=== PATIENT | male | born 1960 | race Caucasian/White ===

== ENCOUNTER 2016-04-07 14:30 | Inpatient (IN) | payer MEDICARE ==
[~2016-04-07] VITALS: Ht 175.3 cm; Wt 133.4 kg
--- NOTE | ~2016-04-07 | HP ---
PATIENT'S NAME: TREMAYNE GONCALVES V [facility] AGE: 56 Y [address] ROOM: [address] [address] LOCATION: GPCU ADMIT DATE: 04/07/2016 History & Physical DISCHARGE DATE: FAMILY PHYSICIAN: PHYSICIAN, UNKNOWN ATTENDING PHYSICIAN: RITA NEWBERRY DATE OF SERVICE: CHIEF COMPLAINT: Acute blood loss anemia and right groin pain. HISTORY OF PRESENT ILLNESS: This is a 56-year-old male who recently had inferior myocardial infarction status post 3 drug-eluting stents placed to the RCA just last Wednesday at an outside facility. At that time, the echo after the stents showed EF of 50% to 55% and the patient was subsequently sent home. During the cardiac cath, the patient had a right femoral artery access. The patient was discharged from the hospital, his hemoglobin was 8. There was no acute bleeding from the right groin area. However, yesterday, the patient had been complaining of a sudden onset of right groin pain. He has noticed that he was having some nausea and vomiting a few times and when he was vomiting, he was putting pressure on his abdomen and that is when he felt that the right groin was popping out and he feels that the right groin area was bulging out and that is when the pain happened in the right groin. He did not notice any obvious bleeding from the groin area. Because of the pain and bulging of the right groin, the patient went to the outside facility for evaluation. Over there, the patient had hemoglobin checked and was found to be 6. He was also hypotensive according to the medical records. Systolic blood pressure was in the 80s for which he responded well to the IV fluids up to the 120s. INR was 1.3 today. He takes Coumadin at home for his history of paroxysmal atrial fibrillation for which currently he is in sinus. After the drug-eluting stent, the patient was put on aspirin and Plavix. At outside facility, the patient was determined not to have any pseudoaneurysm, but just a right femoral hematoma. Because the patient is on peritoneal dialysis; therefore, the patient was transferred here for peritoneal dialysis given that the outside facility does not perform peritoneal dialysis and the patient was given 2 units of packed red blood cell transfusion for hemoglobin of 6 before the transfer here. The patient denies any chest pain or any shortness of breath. His only complaint is right groin pain. REVIEW OF SYSTEMS: As mentioned in the history of present illness. All other systems are reviewed and negative except for those mentioned in the history of present illness. PATIENT'S NAME: TREMAYNE GONCALVES [facility] AGE: 56 Y [address] ROOM: [place] [address] [facility] ADMIT DATE: 04/07/2016 History & Physical DISCHARGE DATE: FAMILY PHYSICIAN: PHYSICIAN, UNKNOWN ATTENDING PHYSICIAN: RITA NEWBERRY PAST MEDICAL HISTORY: 1. Hypertension. 2. End-stage renal disease, on peritoneal dialysis. 3. Paroxysmal atrial fibrillation. 4. Obstructive sleep apnea, on home CPAP. 5. Prior myocardial infarction in 2005, status post drug-eluting stent x1 at that time. ALLERGIES: LATEX WHICH CAUSES HIVES. HOME MEDICATIONS: 1. Lipitor 80 mg p.o. daily. 2. Klonopin 1 mg p.o. every day. 3. MiraLAX 1 packet daily p.r.n. for constipation. 4. Ambien 5 mg p.o. at bedtime. 5. Tylenol 650 mg p.o. every 4 hours p.r.n. for pain or fever. 6. Coreg 25 mg p.o. b.i.d. 7. Nitroglycerin 0.4 mg sublingual every 5 minutes p.r.n. for chest pain. 8. Lasix 80 mg p.o. b.i.d. 9. CPAP at night. 10. Levothyroxine 50 mcg p.o. daily. 11. Klonopin 0.5 mg p.o. at bedtime once daily. 12. Coumadin 6 mg p.o. 6 days a week. 13. Coumadin 9 mg 1 day in a week. 14. Gabapentin 400 mg p.o. daily. 15. Sensipar 180 mg p.o. at bedtime. 16. Velphoro 500 mg p.o. p.r.n. with snacks. 17. Velphoro 1000 mg p.o. t.i.d. 18. Aspirin 81 mg p.o. daily. 19. Plavix 75 mg p.o. daily. SOCIAL HISTORY: The patient was a former cigarette smoker. He quit about 15 years ago. He used to smoke about 1 pack per day for 15 years. He denies any alcohol or any illegal drug use. PAST SURGICAL HISTORY: 1. Status post drug-eluting stent x1 back in 2005. 2. Status post 3 drug-eluting stents to the RCA just last week. FAMILY HISTORY: Father from myocardial infarction at age 54. Mother from cancer of unknown type at age 72. PATIENT'S NAME: TREMAYNE GONCALVES V [facility] AGE: 56 Y [address] ROOM: [address] [place] [id number] [facility] ADMIT DATE: 04/07/2016 History & Physical DISCHARGE DATE: FAMILY PHYSICIAN: PHYSICIAN, UNKNOWN ATTENDING PHYSICIAN: RITA NEWBERRY PHYSICAL EXAMINATION: VITAL SIGNS: At the time of my dictation, temperature 97.5, blood pressure 134/66, heart rate 73, respirations 24, saturation 100% on room air. Pain is 4/10 in the right groin area on palpation. GENERAL APPEARANCE: Alert and oriented x3, in no acute distress. HEENT: Pupils are equally round and reactive to light. Extraocular muscles intact. Anicteric sclerae. Nasal turbinates are normal bilaterally. Moist oral mucosa. CARDIOVASCULAR: Regular rate and rhythm. Normal S1 and S2. No murmur, no rubs, no gallops. RESPIRATORY: Clear. Chest wall nontender to palpation. ABDOMEN: Obese, soft, nontender, nondistended. Normal bowel sounds. No hepatosplenomegaly. EXTREMITIES: In the right groin area, there is obvious hematoma on the right groin and tender to palpation. No active bleeding from the exterior examination of the skin. No edema in upper or lower extremities. NEUROLOGIC: Grossly nonfocal. SKIN: No ulcer. No cyanosis. MUSCULOSKELETAL: No joint pain. No muscle pain. Range of motion intact. LABORATORY DATA: White blood cell 9.5, hemoglobin 8.1, hematocrit 24.2, MCV 91.7, platelets 189. Glucose 77, BUN 58, creatinine 13.3, sodium 136, potassium 4.9, chloride 94, CO2 of 23, calcium 6.4, total protein 5.9, albumin 2.4, AST 23, ALT 11, alkaline phosphatase 66, total bilirubin 0.3, direct bilirubin less than 0.1, GFR 4, anion gap 23.9, INR 1.3. IMAGING STUDIES: CT angiogram of the abdomen and pelvis on admission here in our facility upon arrival showed right groin hematoma without pseudoaneurysm or retroperitoneal hematoma. Large amount of ascites. Ventral hernia. End-stage kidneys. Peritoneal dialysis catheter in place. ASSESSMENT AND PLAN: 1. Acute on chronic anemia secondary to acute blood loss anemia from the right groin hematoma: This is most likely in the setting of nausea and vomiting that he was having that caused bulging of the right groin causing hematoma. He was also put on aspirin and Plavix and also Coumadin, which also increased the risk of bleeding as well. Currently, hemoglobin is 8.1, I am going to check another hemoglobin later today and repeat another one later on. The goal should be hemoglobin more than 8 given that he is a cardiac patient. We will transfuse if necessary. The patient did become hypotensive at the outside facility and the chip mixer from the outside facility who did the cardiac stents did recommend not to give aspirin or Plavix at least for tonight until his PATIENT'S NAME: TREMAYNE GONCALVES V [facility] AGE: 56 Y [address] ROOM: [address] [address] [facility] ADMIT DATE: 04/07/2016 History & Physical DISCHARGE DATE: FAMILY PHYSICIAN: PHYSICIAN, UNKNOWN ATTENDING PHYSICIAN: RITA NEWBERRY hemoglobin remained stable. INR 1.3; therefore, I do not need to reverse the INR. I will hold aspirin and Plavix for tonight given that it is already late at this time and his hemoglobin barely improved with 2 units of blood. I will hold the Coumadin obviously for now. He is in sinus rhythm. If the hemoglobin remains stable in the morning; therefore, we should definitely resume the aspirin and Plavix to prevent any stent restenosis from the recent stent placed just last Wednesday. The patient denies any chest pain. CT angiogram was already performed of the abdomen and pelvis which did not show any retroperitoneal hematoma or any pseudoaneurysm in the right groin. Vascular Surgery has been consulted. At this moment, there is nothing else to be done given that there is no retroperitoneal hematoma or any pseudoaneurysm. Further plan depends on clinical course. 2. Regarding his recent cardiac stents, 3 stents to the RCA just last Wednesday: As mentioned before, hold aspirin and Plavix for now, and if the hemoglobin remains stable, tomorrow morning we can resume the aspirin and Plavix. Continue all other medications including the Lipitor, Coreg, Lasix. The patient is chest pain-free right now. 3. Regarding his obstructive sleep apnea: Continue home CPAP. 4. Regarding his end-stage renal disease, on peritoneal dialysis: Continue peritoneal dialysis today. Nephrology has been consulted already. 5. Paroxysmal atrial fibrillation: He is in sinus rhythm right now. Hold the Coumadin tonight. INR 1.3 today. INR check tomorrow morning. 6. DVT prophylaxis: He will be on compression devices. Time spent in care on the day of admission 40 minutes including chart review, examining and interviewing the patient, addressing all the questions and concerns the patient had, and going over the plan of care with the patient. RITA NEWBERRY MD CC/radha /[id number] D: [id number] T: [id number] HISTORY & PHYSICAL
--- NOTE | ~2016-04-07 | CON ---
PATIENT'S NAME: TREMAYNE GONCALVES V [facility] AGE: 56 Y [address] ROOM: [place] [address] LOCATION: GPCU ADMIT DATE: 04/07/2016 Consultation DISCHARGE DATE: FAMILY PHYSICIAN: PHYSICIAN, ALYSSA ATTENDING PHYSICIAN: RITA NEWBERRY DATE OF CONSULTATION: 04/08/2016 REFERRING PHYSICIAN: Elaina Leyva MD REASON FOR CONSULT: Right groin hematoma. HISTORY OF PRESENT ILLNESS: This is a 56-year-old male, admitted to [facility] after presenting to outside facility with right groin hematoma. The patient recently underwent a heart catheterization with 3 drug-eluting stents to his RCA. They accessed via the right groin and the patient was stable on discharge home. At home, the patient experienced sudden pain, nausea, and vomiting, and felt a sudden pop to his right groin. He noticed a bulging area at the access site. The patient went to [facility] for further evaluation, was found to have hemoglobin of 6, and was hypotensive with systolic blood pressures in the 80s. The patient was on aspirin, Coumadin, and Plavix at that time. CTA of the abdomen and pelvis obtained and revealed no evidence of retroperitoneal bleed or discrete hematoma. No major vascular occlusion. No pseudoaneurysms. The patient denies any chest pain or shortness of breath. Denies any nausea, vomiting, or diarrhea. Denies abdominal pain. Denies any claudication. Denies headache or dizziness. The patient does have continued tenderness to his right groin. Denies any lower extremity numbness other than peripheral neuropathy. PAST MEDICAL HISTORY: 1. End-stage renal disease, on peritoneal dialysis. 2. Essential hypertension. 3. Diabetes mellitus type 2. 4. Paroxysmal atrial fibrillation, on Coumadin. 5. Coronary artery disease, status post stents. 6. Obstructive sleep apnea. 7. Hypothyroidism. 8. Dyslipidemia. 9. Anemia of chronic disease. 10. Diabetic neuropathy. PAST SURGICAL HISTORY: 1. PTCA to RCA. 2. AV fistula. 3. PD dialysis catheter. 4. Right total hip arthroplasty. PATIENT'S NAME: TREMAYNE GONCALVES V [facility] AGE: 56 Y [address] ROOM: [place] [address] LOCATION: GPCU ADMIT DATE: 04/07/2016 Consultation DISCHARGE DATE: FAMILY PHYSICIAN: PHYSICIAN, NO ATTENDING PHYSICIAN: RITA NEWBERRY FAMILY HISTORY: Father with TX and strokes. Mother with cancer. Sister with cancer. Brother with TX as well. SOCIAL HISTORY: The patient reports that he is a former smoker with a 30-year smoking history. He does currently chew tobacco off and on, but stop smoking in 2005. He denies any alcohol or illicit drug use. CURRENT MEDICATIONS: See medication reconciliation. ALLERGIES: SULFA AND LATEX. REVIEW OF SYSTEMS: A 10-point review of systems was completed, positives addressed in the history of presenting illness. PHYSICAL EXAMINATION: VITAL SIGNS: Temperature 97.6, heart rate 67, respiratory rate 18, blood pressure 115/57, and oxygen saturation 98%. GENERAL: The patient is in no acute distress. Resting in his bed. He is alert and oriented x3. SKIN: Warm, pink, and dry. No rashes or ulcerations. He does have ecchymosis to the right groin. HEENT: Head: Normocephalic and atraumatic. Ears without drainage. Eyes: Sclerae white. Conjunctivae pink. Extraocular movements intact. PERRLA. Nose without drainage. Throat: Oral mucosa pink and moist. No exudate or erythema. NECK: Without adenopathy. No evidence of JVD. No carotid bruit. Trachea midline. RESPIRATORY: Clear to auscultation bilaterally. Even and nonlabored. CARDIOVASCULAR: Regular rate and rhythm. No murmur or extra sounds. S1 and S2. GASTROINTESTINAL: Bowel sounds active x4. Soft. Obese. No organomegaly. Peritoneal dialysis catheter present. EXTREMITIES: Right groin hematoma with tenderness on palpation. No cyanosis. 1+ edema to right lower extremity. Bilateral peripheral pulses are 2+. Active range of motion throughout. Capillary refill less than 3 seconds. NEUROLOGIC: No focal deficits. Strength equal bilaterally. Decreased sensation to bilateral lower extremities from peripheral neuropathy. DIAGNOSTICS: PATIENT'S NAME: TREMAYNE GONCALVES [facility] AGE: 56 Y [address] ROOM: [address] [place], [place] [address] LOCATION: GPCU ADMIT DATE: 04/07/2016 Consultation DISCHARGE DATE: FAMILY PHYSICIAN: PHYSICIAN, NO ATTENDING PHYSICIAN: RITA NEWBERRY Chemistry: Sodium 136, potassium 4.9, chloride 95, CO2 of 24, BUN 56, creatinine 3.4, and glucose 89. Hematology: White blood cell count 8.8, hemoglobin 8.4, hematocrit 24.2, and platelets 192. IMPRESSION AND PLAN: Right groin hematoma post heart cath. Hematoma appears stable and imaging is negative for pseudoaneurysm or retroperitoneal bleed. There is no intervention needed from Vascular Surgery at this point in time. The Hospitalist Team is to continue to monitor the patient and guide the plan of care. The patient may follow up with Vascular Surgery as needed or if further complications arise. Thank you for your consultation on this patient and for allowing us to participate in his care. DAJA THRASHER APRN FOR JEREMI PETE MD TO/jackl /[id number] d: 04/08/16 1724 t: 04/19/16 1302, CONSULTATION REPORT
--- NOTE | ~2016-04-07 | CON ---
PATIENT'S NAME: TREMAYNE GONCALVES [facility] AGE: 56 Y [address] ROOM: [place] [address] [facility]: [facility] ADMIT DATE: 04/07/2016 Consultation DISCHARGE DATE: FAMILY PHYSICIAN: PHYSICIAN, ALYSSA ATTENDING PHYSICIAN: RITA NEWBERRY DATE OF CONSULTATION: 04/08/2016 REFERRING PHYSICIAN: Elaina Leyva MD REASON FOR CARDIOLOGY CONSULT: Coronary artery disease with recent inferior ST elevated myocardial infarction as well as a right groin hematoma. HISTORY OF PRESENT ILLNESS: This is a 56-year-old male who suffered an inferior ST elevated myocardial infarction and underwent coronary artery stenting x3 to his right coronary artery last week. He was sent home post procedure after a right femoral access was used for the procedure. He developed nausea and vomiting at home and then suffered some intense sharp right groin pain. Due to the pain as well as some noted swelling to his right groin, he presented to his local emergency department where he was found to be acutely anemic with a hemoglobin of 6 as well as hypotensive. He was resuscitated with IV fluids and packed red blood cells. He was subsequently then transferred to [facility] for further evaluation. Of note, he was previously on Coumadin as well as his aspirin and Plavix due to history of paroxysmal atrial fibrillation. He was given further blood transfusions at [facility], but ultimately was transferred to [facility] for a higher level of care due to the patient's having chronic renal disease and to undergo peritoneal dialysis, which [facility] does not perform. At the time of this consult, he does not elicit any complaints of chest discomfort. He does have complaints of right groin tenderness. PAST MEDICAL HISTORY: 1. Coronary artery disease with a recent inferior ST elevated myocardial infarction with 3 stents placed to his RCA. He also has note of a previous myocardial infarction in 2006 with a stenting to a coronary artery at that time. 2. Hypertension. 3. End-stage renal disease, on peritoneal dialysis. 4. Paroxysmal atrial fibrillation. 5. Obstructive sleep apnea with home CPAP use. 6. Hypertension. 7. Dyslipidemia. 8. Hypothyroidism. 9. Diabetic neuropathy. 10. History of a right total hip arthroplasty. PATIENT'S NAME: TREMAYNE GONCALVES [facility] AGE: 56 Y [address] ROOM: [address] [place], [place] [address] LOC[facility]: [facility] ADMIT DATE: 04/07/2016 Consultation DISCHARGE DATE: FAMILY PHYSICIAN: PHYSICIAN, ALYSSA ATTENDING PHYSICIAN: RITA NEWBERRY FAMILY HISTORY: The patient's father had a history of myocardial infarction as well as several strokes. He at the age of 54. His mother had a history of cancer, he is unsure of the type, and she at the age of 72. He has a sister who due to cancer and a brother who is alive, but does have a history of myocardial infarction. SOCIAL HISTORY: The patient is a former cigarette smoker. He smoked for a total of 30 years and during that time, smoked 1 pack per day. He quit smoking in 2005. He does continue to chew tobacco regularly at this time. He denies alcohol or illicit drug use. CURRENT MEDICATIONS: 1. Ambien 5 mg p.o. daily in the evening. 2. Coreg 25 mg p.o. twice daily. 3. Klonopin 1 mg p.o. daily at 1500 hours. 4. Klonopin 0.5 mg p.o. daily at h.s. 5. Lasix 80 mg p.o. twice daily. 6. Levothyroxine 50 mcg p.o. daily in the morning. 7. Lipitor 80 mg p.o. daily in the evening. 8. Neurontin 400 mg p.o. daily. 9. Velphoro p.o. 3 times daily. 10. Plavix 75 mg p.o. daily. 11. Sensipar 180 mg p.o. daily in the evening. MEDICATION ALLERGIES: No known medication allergies. Does develop hives with latex use. REVIEW OF SYSTEMS: 12-point review of systems evaluated and negative except for those listed in the HPI. PHYSICAL EXAMINATION: VITAL SIGNS: Temperature 97.7, pulse 82, respirations 16, blood pressure 123/70, and O2 saturation 96% on room air. The patient weighs 132.8 kg. SKIN: [place], warm, and dry. EYES: Sclerae clear. No xanthelasmas. ENT: Oral mucosa is pink and moist. No jugular venous distention or carotid bruits. CHEST: Respirations are even and unlabored. LUNGS: Clear to auscultation. HEART: Regular rate and rhythm. Normal S1, S2. No murmurs, rubs, or gallops. ABDOMEN: Soft and nontender. PATIENT'S NAME: TREMAYNE GONCALVES [facility] AGE: 56 Y [address] ROOM: [address] [place], [place] [address] LOC[facility]: [facility] ADMIT DATE: 04/07/2016 Consultation DISCHARGE DATE: FAMILY PHYSICIAN: PHYSICIAN, NO ATTENDING PHYSICIAN: RITA NEWBERRY MUSCULOSKELETAL: Equal muscle strength to upper and lower extremities bilaterally against resistance. He does have complaints of very tender right groin area, but he has no noted bruits. EXTREMITIES: Peripheral pulses palpable. No clubbing, cyanosis, or edema. PSYCH: Alert and oriented. Mood and affect are appropriate. IMPRESSION AND PLAN: Per Dr. Leyva, 1. Coronary artery disease with a recent inferior ST elevated myocardial infarction. He has previously had 3 stents placed to his right coronary artery. 2. Right groin hematoma after a femoral puncture for his heart catheterization procedure. 3. Acute blood loss anemia. He has received packed red blood cells and his hemoglobin is currently 8.4. 4. End-stage renal disease, currently on peritoneal dialysis. 5. Paroxysmal atrial fibrillation, currently in a sinus rhythm. Overall if possible, we would like the patient to continue on his antiplatelets due to his most acute setting of coronary stenting with drug- eluting stents but do understand that those may need to be stopped for continual bleeding complications. We will obtain his previous cardiac records from [facility] and fully evaluate them. We will continue to monitor, evaluate, and treat as appropriate. Thank you for this consult. Thank you for allowing [facility] to interact in the care of this patient. ASHLY MODI APRN FOR ISAAC-MD RAYSHAWN BUSBY/radha /[id number] d: 04/09/16 0030 t: 04/15/16 0922, CONSULTATION REPORT
--- NOTE | ~2016-04-07 | DS ---
PATIENT'S NAME: TREMAYNE GONCALVES V [facility] AGE: 56 Y [address] ROOM: [address] [place], [place] [address] LOCATION: GPCU ADMIT DATE: 04/07/2016 Discharge Summary DISCHARGE DATE: 04/11/2016 FAMILY PHYSICIAN: PHYSICIAN, ALYSSA ATTENDING PHYSICIAN: Abel Mccarthy ATTENDING PHYSICIAN: Junior De La O M.D. PRIMARY CARE PHYSICIAN: Erika Mancilla APRN, in [facility]. FINAL DIAGNOSES: 1. Right groin hematoma, resolved. 2. Acute blood loss anemia, resolved. 3. Recent ST-segment elevation myocardial infarction, status post stent. 4. Coronary artery disease, status post stent. 5. Dyslipidemia. 6. End-stage renal disease, on peritoneal dialysis. 7. Paroxysmal atrial fibrillation. 8. Long-term anticoagulation. 9. Ascites secondary to peritoneal dialysis. 10. Right lung nodule, under surveillance. CONSULTATIONS: 1. Cardiology, Dr. Leyva. 2. Nephrology, Dr. Resendez. PROCEDURES: None. REASON FOR ADMISSION: This is a 56-year-old male who recently had STEMI and underwent stent to his RCA on April 01, 2016, at [facility]. The patient was then placed on Plavix and Coumadin for his paroxysmal atrial fibrillation and discharged. The patient presented to an outlying facility with right-sided groin pain and edema. It was noted that his blood pressures were in the 80s/60s. He was also found to be in hypovolemic shock at that point of time. The patient was then transferred to [facility] for higher level of care. Please see Dr. Mccarthy's admission H and P for further details. DIAGNOSTIC STUDIES: Serial CBCs were done. White count was essentially normal. The patient had evaluation with serial H and H. Hemoglobin on admission was 8.1, at the time of discharge was stable at 8.3. The patient received 1 unit of PRBC during this admission. He also received 1 unit of PRBC at the referral hospital. Platelet count was within normal range. BMP showed essentially normal electrolytes. The patient has a history of peritoneal dialysis and end-stage renal disease. He underwent peritoneal dialysis at [facility], under Nephrology care. BUN 58 on admission and 40 at discharge, creatinine 13.3 on admission and 13.2 at PATIENT'S NAME: TREMAYNE GONCALVES V [facility] AGE: 56 Y [address] ROOM: [address] [place], [place] [address] LOCATION: GPCU ADMIT DATE: 04/07/2016 Discharge Summary DISCHARGE DATE: 04/11/2016 FAMILY PHYSICIAN: PHYSICIAN, NO ATTENDING PHYSICIAN: Abel Mccarthy discharge. Potassium level was within normal range. The patient is on Coumadin. His INR was 1.3 on admission. The patient's Coumadin was stopped. INR at the time of discharge was 1.1 and Coumadin was restarted. CT abdomen and pelvis with and without contrast was done and that showed mild pleural thickening at both chest bases, mild pleural effusion. A large amount of ascites secondary to PD likely was noted. Midline ventral hernia containing fluid in bowel but not incarcerated was detected. Gallstone suspected. Biliary tree nondilated. Diffuse edema around the right upper thigh and hip consistent with interstitial bleeding after endovascular procedures noted. No discrete significant sized hematoma was noted. No evidence of retroperitoneal bleed was noted. Very extensive calcification of the aorta and great vessels in the abdomen and pelvis was detected. Peritoneal fluid culture showed no growth. Gram-stain showed no organisms and few white blood cells. Moderate amount of amorphous material was present. HOSPITAL COURSE: The patient was admitted for evaluation and management of hypovolemic shock. This is a 56-year-old male who recently had a STEMI and received a stent to his RCA. The patient was then subsequently placed on aspirin and Plavix. He was also started on his home Coumadin dose for paroxysmal atrial fibrillation. The procedure was done at [facility]. The patient was then transferred to home. The patient presented about 4 days later with right groin hematoma and right groin pain. He was found to be in hypovolemic shock with systolic in the 80s and then transferred to [facility]. Please see Dr. Mccarthy's admission H and P for further details. At [facility], frequent H and H's were done. The patient received 1 unit of PRBC transfusion at the referral hospital. He then subsequently had to be transfused another unit prior to transfer. Hemoglobin at the time of discharge was stable. There was concern for a vessel injury. A CTA abdomen and pelvis was done, Vascular Surgery was consulted. There was no rupture of any vessel. This was likely a hematoma status post cath. The patient did have bruising in that area. He was placed on pain medication, and his pain was resolving at the time of discharge, hematoma resolving at the time of discharge. Initially, his Plavix and Coumadin were started. Cardiology was consulted and no further recommendations were received. We reviewed his history during this admission. Cardiology recommended starting Plavix at the earliest. The next day, when his hemoglobin was stable, Plavix was restarted. The patient's hemoglobin did not drop further. His Coumadin was started. Prior to discharge, he received another unit of PRBC, and his hemoglobin was stable at the time of discharge. We had also discussed with Cardiology about the use of Coumadin given his history of paroxysmal atrial fibrillation. Cardiology had recommended to start the Coumadin slowly and get him therapeutic subsequently. Before discharge, the patient's Coumadin was restarted. Given his bleeding history, bridging was not done during this PATIENT'S NAME: TREMAYNE GONCALVES V [facility] AGE: 56 Y [address] ROOM: [address] [address] LOCATION: GPCU ADMIT DATE: 04/07/2016 Discharge Summary DISCHARGE DATE: 04/11/2016 FAMILY PHYSICIAN: PHYSICIAN, NO ATTENDING PHYSICIAN: Abel Mccarthy admission. The patient has end-stage renal disease and is on peritoneal dialysis. Nephrology was consulted. The patient was followed by Dr. Resendez. He underwent peritoneal dialysis per Renal recommendations. Prior to discharge, the patient continued to do well. He was ambulating in the hallway. His pain was very well controlled. He was not lightheaded. Hemoglobin was stable. The patient then continued to do well, and was discharged and asked to follow up with his primary care physician. DISCHARGE INSTRUCTIONS: The patient discharged in a cardiac diet with activity as tolerated, use walker for assistance. Follow up with Cardiology, Dr. Stevens/Dr. Garcia as scheduled. Follow up with PCP, Erika Mancilla in 2 days on 04/13/2016. PCP to check a CBC, BMP, PT, and INR. PCP to manage Coumadin based on PT and INR levels. Follow up Cardiology and Nephrology as scheduled. PD per Renal recs. Recommended CPAP at bedtime. 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 PCP to repeat chest x-ray or a chest CT for monitoring right lung nodule in 1 to 2 months' time. DISCHARGE MEDICATIONS: 1. Lipitor 80 mg p.o. at bedtime. 2. Coreg 25 mg p.o. b.i.d., hold for systolic blood pressure less than 110 and heart rate less than 60. 3. Sensipar 180 mg p.o. at bedtime. 4. Klonopin 1 mg p.o. daily. 5. Klonopin 0.5 mg p.o. at bedtime. 6. Plavix 75 mg p.o. daily. 7. Aspirin 81 mg p.o. daily. 8. Lasix 80 mg p.o. b.i.d. 9. Neurontin 400 mg p.o. daily. 10. Levothyroxine 50 mcg p.o. daily. 11. Ambien 5 mg p.o. at bedtime. 12. [place] 5/325 mg 1 to 2 tablets p.o. q.4 hours p.r.n. pain. 13. MiraLAX 17 g p.o. daily p.r.n. constipation. 14. Tylenol 650 mg p.o. q.4 hours p.r.n. pain/fever. 15. Nitrostat 0.4 mg sublingual as needed p.r.n. chest pain. 16. CPAP per home settings at bedtime. 17. Coumadin 6 mg p.o. on Wednesday, Wednesday, , Wednesday, and Wednesday. PCP to manage based on PT/INR levels. 18. Coumadin 9 mg p.o. on Wednesday. PCP to manage based on PT/INR levels. 19. Velphoro 500 mg p.o. as needed p.r.n. 20. Velphoro 1000 mg p.o. 3 times daily. PATIENT'S NAME: TREMAYNE GONCALVES V [facility] AGE: 56 Y [address] ROOM: [address] [place], [place] [address] LOCATION: GPCU ADMIT DATE: 04/07/2016 Discharge Summary DISCHARGE DATE: 04/11/2016 FAMILY PHYSICIAN: PHYSICIAN, NO ATTENDING PHYSICIAN: Abel Mccarthy This patient was managed by Hospitalist, Cardiology, Vascular Surgery, and Nephrology teams during this admission. JUNIOR DE LA O MD MT/radha /[id number] CC: Erika Mancilla APRN d: 04/12/16614 t: 04/12/162011, DISCHARGE SUMMARY
--- NOTE | ~2016-04-07 | CON ---
PATIENT'S NAME: TRMEAYNE GONCALVES V [facility] AGE: 56 Y [address] ROOM: [place] [address] LOCATION: GPCU ADMIT DATE: 04/07/2016 Consultation DISCHARGE DATE: FAMILY PHYSICIAN: PHYSICIANALYSSA ATTENDING PHYSICIAN: RITA NEWBERRY DATE OF CONSULTATION: 04/07/2016 REFERRING PHYSICIAN: Elaina Leyva MD This is a [facility] Nephrology Consultation. REASON FOR CONSULTATION: End-stage renal disease, on peritoneal dialysis. HISTORY OF PRESENT ILLNESS: This is a 56-year-old male patient, who is well known to Dr. Leblanc, who presented to the [facility] with right-sided groin pain and edema status post left heart catheterization with PCI and 3 stents at a nearby hospital. The patient was noted to be in hypovolemic shock with blood pressures in the 80s. The patient was transferred to [facility] where he was thoroughly evaluated. The patient was found to have a hematoma of the right groin at that time. The patient is on aspirin and Plavix. The patient's blood pressures were resuscitated with IV fluids and again the patient received 2 units of blood. He does have a past medical history of end-stage renal disease and is on peritoneal dialysis daily. The patient has been on hemodialysis in the past for approximately a year and then he did switch over to peritoneal dialysis without complication. He is currently on CCPD. His ultrafiltration is usually between 1200 and 1600 mL. Therefore, due to history of his end-stage renal disease requiring peritoneal dialysis, Dr. Leblanc and Nephrology has been asked to consult on the patient. PAST MEDICAL HISTORY: As listed above including; 1. End-stage renal disease from diabetes and hypertension. 2. Diabetic nephropathy. 3. Renovascular hypertension. 4. Obesity. 5. Anemia of chronic kidney disease. 6. Chronic atrial fibrillation. 7. Obstructive sleep apnea. 8. Hyperphosphatemia. PAST SURGICAL HISTORY: 1. Peritoneal dialysis catheter placement. 2. AV fistula placement. 3. Cardiac catheterization and stent placement. PATIENT'S NAME: TREMAYNE GONCALVES V [facility] AGE: 56 Y [address] ROOM: [place] [address] LOCATION: GPCU ADMIT DATE: 04/07/2016 Consultation DISCHARGE DATE: FAMILY PHYSICIAN: PHYSICIAN, NO ATTENDING PHYSICIAN: RITA NEWBERRY 4. PCI with [address] Garcia on 04/01/2016. 5. Thoracentesis. SOCIAL HISTORY: The patient does live alone at home and is single. He is negative for alcohol, tobacco, or illicit drug use. FAMILY HISTORY: Reviewed and is noncontributory. There is no history of renal disease or dialysis. ALLERGIES: LATEX. MEDICATIONS: Current home medications include; 1. Tylenol 325 mg 2 tablets p.o. q.4 hours. 2. Aspirin 81 mg daily. 3. Atorvastatin 80 mg daily at bedtime. 4. Carvedilol 25 mg p.o. b.i.d. 5. Sensipar 90 mg 2 tablets daily at bedtime. 6. Clonazepam 1 mg, 1/2 tablet every night at bedtime and 1 mg p.o. daily. 7. Plavix 75 mg daily. 8. Lasix 80 mg twice a day. 9. Gabapentin 400 mg daily. 10. Levothyroxine 50 mcg daily. 11. Nitroglycerin 0.4 mg sublingual p.r.n. for chest pain. 12. MiraLax 17 grams p.o. daily. 13. Sucroferric oxyhydroxide 1000 mg p.o. t.i.d. with meals and 500 mg p.o. p.r.n. with snacks. 14. Warfarin 6 mg p.o. 6 days of the week and 9 mg p.o. one day of the week. 15. Ambien 5 mg daily at bedtime. REVIEW OF SYSTEMS: GENERAL: Complains of some fatigue. Denies any fever, chills, or night sweats. EYES: No double vision or blurred vision. NOSE: No epistaxis or rhinorrhea. MOUTH: No gingival bleeding. THROAT: No sore throat, hoarseness, or cough. RESPIRATORY: Denies wheezing or hemoptysis. CARDIOVASCULAR: See HPI. No chest pain currently. GASTROINTESTINAL: Denies nausea, vomiting, or diarrhea. Denies hematemesis or hematochezia. GENITOURINARY: He does continue to make urine despite hemodialysis. PATIENT'S NAME: TREMAYNE GONCALVES V [facility] AGE: 56 Y [address] ROOM: [address] [place] [id number] [facility] ADMIT DATE: 04/07/2016 Consultation DISCHARGE DATE: FAMILY PHYSICIAN: PHYSICIAN, NO ATTENDING PHYSICIAN: RITA NEWBERRY MUSCULOSKELETAL: He does have tenderness in his right groin. NEUROLOGIC: Denies numbness or tingling in the upper or lower extremities. He does have a history of diabetic neuropathy and is on gabapentin. HEMATOLOGIC: Denies any history of bruising or bleeding other than what is listed in the HPI. PSYCHIATRIC: Denies depression or anxiety. LABORATORY DATA: Hemoglobin 8.4, hematocrit 24.2, WBCs 8.8, and platelets 192. Glucose 89, BUN is 56, creatinine 13.4, sodium 136, potassium 4.9, chloride 95, CO2 is 24, calcium 6.6, albumin 2.4, AST 23, ALT is 11, alkaline phosphatase 66, phos is 9.0, magnesium is 2.1, and INR is 1.3. CT of the abdomen and pelvis with and without contrast shows; 1. Right groin hematoma without pseudoaneurysm or retroperitoneal bleeding. 2. Large amount of ascites. 3. Ventral hernia. 4. End-stage kidneys. 5. Peritoneal dialysis catheter. PHYSICAL EXAMINATION: VITAL SIGNS: Blood pressure is 123/70, pulse is 82, respirations 16, temperature is 97.7, and saturations 96% on room air. GENERAL: On exam, this is an alert and oriented x3, male patient, who is in no acute distress. HEENT: Head: Normocephalic and atraumatic. Eyes: Pupils are equal, round, and reactive to light and accommodation. EOMs are intact. Nose is midline. Mouth: No gingival bleeding. Mucosa is pink and moist. Throat is without lymphadenopathy, carotid bruits, or JVD. LUNGS: Lung sounds are clear to auscultation anteriorly and posteriorly. Breaths are nonlabored. CARDIOVASCULAR: Regular rate and rhythm with normal S1 and S2. There are no murmurs, rubs, or thrills. ABDOMEN: Soft, nontender, and nondistended. Bowel sounds are positive. EXTREMITIES: Show tenderness noted in the right groin area with obvious hematoma in the right groin that is tender to palpation to the mid thigh. No active bleeding from exterior examination. There are no edema in bilateral lower extremities. NEUROLOGIC: Cranial nerves II through XII are grossly intact. ASSESSMENT AND PLAN: 1. End-stage renal disease, on peritoneal dialysis. We will obtain the patient's outpatient clinical record and provide peritoneal dialysis accordingly. He does use 1.5% dextrose solution 4 cycles over 9 hours. We will send the PD fluid for cell count. PATIENT'S NAME: TREMAYNE GONCALVES V [facility] AGE: 56 Y [address] ROOM: [place] [address] [facility] ADMIT DATE: 04/07/2016 Consultation DISCHARGE DATE: FAMILY PHYSICIAN: PHYSICIAN, ALYSSA ATTENDING PHYSICIAN: RITA NEWBERRY 2. Right groin hematoma status post left heart catheterization with percutaneous coronary intervention. Bleeding is controlled at this time. Further recommendations per hospitalist. 3. Diabetic neuropathy. The patient is to continue his Neurontin at this time. 4. Hyperphosphatemia secondary to chronic kidney disease. The patient is to continue his Velphoro with food. 5. Hyperlipidemia. Continue statin. 6. Hypothyroidism. Continue levothyroxine. This patient has been seen and assessed by Dr. Leblanc. His care is being conducted in consultation with Dr. Leblanc as well as me. We will plan further recommendations as they are forthcoming. DENISE STEVENSON DNP, WINDOWS APPLICATION DEVELOPER FOR [employer] VIELKA LEBLANC MD ENS/modl /[id number] d: 04/08/162201 t: 04/27/16 0934, CONSULTATION REPORT
--- NOTE | ~2016-04-07 | HP ---
PATIENT'S NAME: [facility] TREMAYNE V [facility] AGE: 56 Y [address] ROOM: [place] [address] LOCATION: GPCU ADMIT DATE: 04/07/2016 History & Physical DISCHARGE DATE: FAMILY PHYSICIAN: PHYSICIAN, UNKNOWN ATTENDING PHYSICIAN: RITA NEWBERRY DATE OF SERVICE: PRIMARY CARE PHYSICIAN: Dr. Mancilla out of [place]. CHIEF COMPLAINT: Right groin pain. HISTORY OF PRESENT ILLNESS: The patient is a 56-year-old male, who initially presented to [facility] with right-sided groin pain and edema. It was noted that he had blood pressures 80s over 60s. He was found to be in hypovolemic shock. They did fluid resuscitate him and start 2 units of blood. He was then transferred to [facility] where he was further evaluated. The patient had undergone stenting of the RCA on April 01, 2016, due to STEMI at that time. The patient was started on aspirin and Plavix and was released shortly after the procedure in stable condition. Upon return today, he was found to have a large hematoma over the calf incision site. The patient's pressure had resuscitated with IV fluids, and again, he did receive 2 units of blood. The patient has history of end-stage renal disease and is on daily peritoneal dialysis, which they can not do at [facility], and thus, the patient was transferred up here. Upon interview today, the patient is stable. His pain is well controlled. His pressures were much improved, and the patient will be further evaluated for his acute anemia while hospitalized. PAST MEDICAL HISTORY: Illnesses include: 1. End-stage renal disease secondary to hypertension and diabetes, on chronic peritoneal dialysis. 2. Paroxysmal atrial fibrillation, on long-term anticoagulation. 3. Coronary artery disease, status post 3 stents to the RCA. 4. Obstructive sleep apnea, on CPAP. 5. Essential hypertension. 6. Hypothyroidism. 7. Dyslipidemia. 8. Status post right total hip arthroplasty. 9. Anemia of chronic disease. 10. Diabetic neuropathy. SOCIAL HISTORY: Negative for alcohol, tobacco, or illicit drug use. The patient is single and PATIENT'S NAME: [facility] TREMAYNE [facility] AGE: 56 Y [address] ROOM: [place] [address] LOCATION: GPCU ADMIT DATE: 04/07/2016 History & Physical DISCHARGE DATE: FAMILY PHYSICIAN: PHYSICIAN, UNKNOWN ATTENDING PHYSICIAN: RITA NEWBERRY. FAMILY HISTORY: Reviewed and found to be noncontributory to his current symptoms and diagnoses. CURRENT MEDICATIONS: 1. Tylenol 325 mg q.4 hours p.r.n. 2. Aspirin 81 mg daily. 3. Lipitor 80 mg daily. 4. Coreg 25 mg daily. 5. Clonazepam 1.5 mg daily. 6. Lasix 80 mg twice a day. 7. Gabapentin 200 mg at bedtime. 8. Levothyroxine 50 mcg daily. 9. Nitrostat 0.4 mg sublingual every 5 minutes for chest pain. 10. Nystatin topical twice daily for an intertrigo rash. 11. MiraLAX 17 g daily p.r.n. 12. Renvela 1600 mg 3 times a day. 13. Sensipar 180 mg at bedtime. 14. Velphoro 500 mg a 1000 mg 3 times daily before meals. 15. Ambien 5 mg at bedtime. 16. Coumadin 9 mg on Wednesday. 17. Coumadin 6 mg every day except Wednesday. 18. Plavix 75 mg daily. ALLERGIES: TO LATEX AND SULFA. REVIEW OF SYSTEMS: A 13-point review of systems was obtained and negative other than the pertinent positives as mentioned above. PHYSICAL EXAMINATION: VITAL SIGNS: Height is 5 feet 9 inches, weight is 132.8 kilos, temp is 97.7, blood pressure is 152/72, pulse 104, heart rate is 68, he is 100% on room air. GENERAL: The patient is alert, oriented, in no acute distress. HEENT: Head: Normocephalic and atraumatic. Eyes: PERRLA, EOMI. Ears: TMs are intact, nonerythematous, canals are clear. Nose is patent. Mucosa is pink and moist. Throat: Posterior pharynx is nonerythematous. No tonsillar hypertrophy or exudates. NECK: Supple. No adenopathy or thyromegaly. LUNGS: Clear to auscultation and percussion bilaterally. Breath sounds are even and regular throughout. HEART: Regular rate and rhythm without murmur. No carotid bruits or JVD. PATIENT'S NAME: TREMAYNE GONCALVES V [facility] AGE: 56 Y [address] ROOM: [address] [place] [id number] [facility] ADMIT DATE: 04/07/2016 History & Physical DISCHARGE DATE: FAMILY PHYSICIAN: PHYSICIAN, UNKNOWN ATTENDING PHYSICIAN: RITA NEWBERRY ABDOMEN: Soft, nondistended. Positive bowel sounds auscultated. No masses or organomegaly palpated. EXTREMITIES: The patient does have no cyanosis or calf tenderness. He does have 1 to 2+ edema in his right lower extremity. Trace of edema noted in his left lower extremity. SKIN: The patient does have significant ecchymosis to his right groin with obvious mass present. Palpation elicits definite tenderness. The area is outlined. SKIN: No other rashes or acute skin lesions noted. NEUROLOGIC: The patient has diminished sensation in bilateral lower extremities. Otherwise, sensation is intact. No other focal or sensory deficits noted. MUSCULOSKELETAL: The patient does not have any significant crepitus in the knees, elbows, or shoulders and has range of motion as appropriate for age and condition. DIAGNOSTICS: White blood cell count is 9.5, hemoglobin is 8.1, hematocrit 24.2, platelets 189. Rest of the laboratory studies are pending at the time of dictation. IMPRESSION: 1. Acute on chronic anemia. 2. Hypovolemic shock, now resolved. 3. Essential hypertension. 4. Hypothyroidism. 5. End-stage renal disease, on peritoneal dialysis. 6. Dyslipidemia. 7. Coronary artery disease, status post stenting of the RCA. 8. Diastolic congestive heart failure. 9. Anxiety and insomnia. 10. Diabetic neuropathy. PLAN: The patient will undergo a CTA imaging for further evaluation of his acute anemia. Dr. Rogel and Dr. Willis will consult for Vascular and Nephrology respectively. We will continue with his dialysis. We will continue with CPAP use at h.s. Keep the patient n.p.o. until further evaluation. We do appreciate participating in this patient's care, and thank you very much for the ability to serve him while hospitalized at [facility]. CELINE HILL FOR RITA NEWBERRY MD PATIENT'S NAME: TREMAYNE GONCALVES V [facility] AGE: 56 Y [address] ROOM: [address] [address] [facility] ADMIT DATE: 04/07/2016 History & Physical DISCHARGE DATE: FAMILY PHYSICIAN: PHYSICIAN, MIRIAM ATTENDING PHYSICIAN: RITA NEWBERRY/radha /[id number] D: 62 HISTORY & PHYSICAL
[~2016-04-07 14:30] MED LIST: AMBIEN5 MG PO; CLINDAMYCIN150 MG PO; CLONAZEPAM0.5 MG PO; COLACE100 MG PO; CORDARONE,PACE200 MG PO; COREG12.5 M1 PO; COREG12.5 MG PO; COREG25 MG PO; COUMADIN3 MG PO; COUMADIN6 MG PO; CPAP INH; DILAUDID 2MG(HYD2 MG PO; EPOGEN SUB-Q; EPOGEN20000 UNIT SUB-Q; FLORASTOR250 MG PO; FOSRENOL500 MG PO; GENTAMICIN SULF30 GM TOP; GENTAMICIN15 GM TOP; HYDROCERIN)(MI236 ML TOP; KEFLEX250 MG; KLONOPIN1 MG PO; LASIX80 MG PO; LEVOTHROID (S100 MCG PO; LEVOTHROID (SY50 MCG PO; LIPITOR80 MG PO; MIRALAX17 GM PO; NEURONTIN400 MG PO; NITROSTAT0.4 MG SL; NORCO 5-325 TA1 EACH PO; NORVASC5 MG PO; OXYCONTIN EXTEN10 MG PO; PHOSLO667 MG PO; RENVELA800 MG PO; ROCALTROL0.25 MCG PO; SENOKOT8.6 MG PO; SYMBICORT 16010.2 GM INH; TYLENOL325 MG PO; VALIUM5 MG PO; VELPHORO500 MG PO
[2016-04-07 16:49] LABS: HEMATOCRIT 24.2 % (37.0-53.0); HEMOGLOBIN 8.1 g/dL (12.0-17.0); MCH 30.7 pg (27.0-34.0); MCHC 33.5 gm/dL (32.0-36.5); MPV 9.2 fl (9.4-12.4); PLATELET COUNT 189 K/uL (150-450); RBC 2.64 M/uL (4.00-6.00); RDW-CV 14.2 % (11.9-14.6); WBC 9.5 K/uL (4.0-11.0)
[2016-04-07 16:51] LABS: MCV 91.7 fl (83.0-98.0)
[2016-04-07 17:07] LABS: ALBUMIN 2.4 gm/dL (3.5-5.0); ALK PHOS 66 IU/L (33-138); ALT 11 IU/L (12-78); ANION GAP 23.9 (10.0-19.0); AST 23 IU/L (10-40); BLOOD UREA NITROGEN 58 mg/dL (6-24); CALCIUM 6.4 mg/dL (8.5-10.5); CHLORIDE 94 mMol/L (96-110); CO2 23 mMol/L (22-32); CREATININE 13.3 mg/dL (0.6-1.3); ESTIMATED GFR (MDRD EQUATION) 4; POTASSIUM 4.9 mMol/L (3.7-5.1); SODIUM 136 mMol/L (135-145); TOTAL BILIRUBIN 0.3 mg/dL (0.0-1.5); TOTAL PROTEIN 5.9 g/dL (6.0-8.4)
[2016-04-07] MEDS ORDERED: SENSIPAR90 MG PO (17:07)
[2016-04-07] MEDS ORDERED: VELPHORO500 MG PO ×2 (17:07→17:08)
[2016-04-07 17:08] LABS: INR - (THERAPEUTIC) 1.3 (0.9-1.1); PROTIME 13.7 SECONDS (9.6-11.1)
[2016-04-07] MEDS ORDERED: PLAVIX75 MG PO (17:09)
[2016-04-07] MEDS ORDERED: ASPIRIN LO-DOSE81 MG PO (17:09)
[2016-04-07 17:27] LABS: ABSOLUTE NEUTROPHIL CT (ANC) 7.8 K/uL (1.4-9.0); LYMPHOCYTE # 1.1 K/uL (0.8-4.0); LYMPHOCYTE % 12 %; MONOCYTE # 0.4 K/uL (0.0-1.0); SEGMENTED NEUTROPHIL # 7.8 K/uL (1.4-9.0); SEGMENTED NEUTROPHIL % 82 %
--- NOTE | 2016-04-07 17:28 | NUR ---
Patient is 56 yo male admitted from [facility] after having 3 stents placed on Wednesday of last week. he has developed a femoral hematoma on the right groin area. he has developed anemia and rec'd blood prior to being transferred here today. patient is from [facility]. just recently moved there from [place], [place]. 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 Right chest port is already accessed. dressing intact. no erythema or edema is noted at site. Education is given as documented. patient denies questions. patient appears a little "gruff". he seems annoyed when asked questions. pneumatics are awaiting him to go to CT scan and back. states he thinks he might do better with the foot pumps instead of the calf pumps. patient states he allergic to latex. states it gives him hives with contact, but no breathing difficulties have ever been experienced. call light is within reach. watches tv. denies other needs. Report is given to OFELIA Aldrich.
--- NOTE | 2016-04-07 19:30 | NUR ---
Significant Event: CTA OF ABD/PELVIS COMPLETE WITH STAT LABS UPON ARRIVAL. HGB 8.1. DR PETE CONSULTED AND DR TURCIOS FOR PD/ESRD MANAGEMENT. STILL TO SEE PATIENT. VSS ON RA. NO C/O PAIN. PD CATH SITE CLEAN WITH NO REDNESS PRESENT, HELD IN PLACE BY ABD BAND. R) CHEST PORT ACCESSED FROM OUTSIDE FACILITY. SL'D AND HAS GOOD BLOOD RETURN. CARDIAC DIET AFTER CTA DONE. BEDREST WITH [facility]. Follow up: CPAP AT HS. DR NEWBERRY STILL TO SEE. HOME MED LIST TO BE ADDRESSED. 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
[2016-04-07 22:35] LABS: HEMATOCRIT 23.2 % (37.0-53.0)
[2016-04-07 22:44] LABS: HEMOGLOBIN 7.9 g/dL (12.0-17.0)
[2016-04-08 06:18] LABS: INR - (THERAPEUTIC) 1.3 (0.9-1.1); PROTIME 13.4 SECONDS (9.6-11.1)
[2016-04-08 06:19] LABS: ALBUMIN 2.4 gm/dL (3.5-5.0); ANION GAP 21.9 (10.0-19.0); MAGNESIUM 2.1 mg/dL (1.3-2.6); POTASSIUM 4.9 mMol/L (3.7-5.1)
[2016-04-08 06:41] LABS: BASOPHIL % 0.3 %; EOSINOPHIL # 0.4 K/uL (0.0-0.5); EOSINOPHIL % 4.2 %; HEMATOCRIT 24.2 % (37.0-53.0); HEMOGLOBIN 8.4 g/dL (12.0-17.0); IMMATURE GRANULOCYTE # 0.1 K/uL (0.0-0.3); IMMATURE GRANULOCYTE % 0.8 %; LYMPHOCYTE # 1.4 K/uL (0.8-4.0); LYMPHOCYTE % 15.5 %; MCH 31.6 pg (27.0-34.0); MCHC 34.7 gm/dL (32.0-36.5); MONOCYTE # 0.5 K/uL (0.0-1.0); MPV 9.2 fl (9.4-12.4); NEUTROPHIL # (ANC) 6.4 K/uL (1.4-9.0); NEUTROPHIL % 73.2 %; NRBC % 0 /100WBC (0-0.00); PLATELET COUNT 192 K/uL (150-450); RBC 2.66 M/uL (4.00-6.00); RDW-CV 14.6 % (11.9-14.6); WBC 8.8 K/uL (4.0-11.0)
--- NOTE | 2016-04-08 06:42 | NUR ---
Significant Event: PATIENT ADMITTED WITH HEMATOMA TO RIGHT GROIN FROM PREVIOUS HEART CATH SITE. THERE IS BRUISING OUTLINED. AREA IS TENDER AND FIRM TO PALPATION. CT SCAN SHOWED NO ACTIVE BLEEDING. PATIENT RECEIVED 1 U PRBC FOR HBG OF 7.9. WEARS CPAP AT HS. OBS STATUS. PERITONEAL DIALYSIS. Follow up:
[2016-04-08 06:43] LABS: CALCIUM 6.6 mg/dL (8.5-10.5); CREATININE 13.4 mg/dL (0.6-1.3)
[2016-04-08 10:23] LABS: PERITONEAL FLUID TURBIDITY CLEAR (CLEAR)
[2016-04-08 11:18] LABS: % PERITONEAL FLUID EOS 13 % (0-0); % PERITONEAL FLUID MONO/MACRO 33 % (0-0); % PERITONEAL FLUID NEUT 12 % (0-25)
[2016-04-08 16:36] LABS: HEMATOCRIT 25.1 % (37.0-53.0); HEMOGLOBIN 8.5 g/dL (12.0-17.0)
--- NOTE | 2016-04-08 17:20 | NUR ---
Significant Event: Patient is A/0x3. Oxygen sats are upper 90's on room air. VSS. Bedrest with BRP. Right chest port was dressing changed today and is saline locked and flushes well with good blood return. Rates pain from 8-10 with movement and 2-3 at rest. Dilaudid and norco have been given for pain management. Follow up: Looking at possible dismissal in next few days and will continue the peritoneal dialysis and pain management.
--- NOTE | 2016-04-08 23:34 | NUR ---
PT IS CURRENTLY ON 2L NC, IS NOT COMPLYING WITH CPAP DUE TO LARGE AMOUNT OF FACIAL HAIR AND LEAK PERCENTAGE.
[2016-04-09 04:15] LABS: ALBUMIN 2.5 gm/dL (3.5-5.0); ANION GAP 21.3 (10.0-19.0); CALCIUM 6.3 mg/dL (8.5-10.5); CREATININE 12.9 mg/dL (0.6-1.3); POTASSIUM 4.3 mMol/L (3.7-5.1); TOTAL BILIRUBIN 0.4 mg/dL (0.0-1.5); TOTAL PROTEIN 6.3 g/dL (6.0-8.4)
[2016-04-09 04:34] LABS: BASOPHIL % 0.3 %; EOSINOPHIL # 0.4 K/uL (0.0-0.5); EOSINOPHIL % 4.1 %; HEMATOCRIT 24.2 % (37.0-53.0); HEMOGLOBIN 8.2 g/dL (12.0-17.0); IMMATURE GRANULOCYTE # 0.1 K/uL (0.0-0.3); IMMATURE GRANULOCYTE % 0.8 %; LYMPHOCYTE # 1.3 K/uL (0.8-4.0); LYMPHOCYTE % 14.3 %; MCH 31.1 pg (27.0-34.0); MCHC 33.9 gm/dL (32.0-36.5); MCV 91.7 fl (83.0-98.0); MONOCYTE # 0.5 K/uL (0.0-1.0); MONOCYTE % 5.8 %; MPV 9.5 fl (9.4-12.4); NEUTROPHIL # (ANC) 6.9 K/uL (1.4-9.0); NEUTROPHIL % 74.7 %; NRBC % 0 /100WBC (0-0.00); PLATELET COUNT 207 K/uL (150-450); RBC 2.64 M/uL (4.00-6.00); RDW-CV 14.4 % (11.9-14.6); WBC 9.2 K/uL (4.0-11.0)
[2016-04-09 04:38] LABS: INR - (THERAPEUTIC) 1.2 (0.9-1.1); PROTIME 12.4 SECONDS (9.6-11.1)
--- NOTE | 2016-04-09 05:48 | NUR ---
Significant Event:VSS. peritoneal dialysis this shift set up by dialysis nurse. Pt c/o to R groin with hematoma. [place] given x3 this shift for pain with movement 10/10. Pt able to sit edge of bed. R chest port, flushes with good blood return. Follow up:COnt with plan of care
--- NOTE | 2016-04-09 12:03 | NUR ---
Introduced self and CM role to Cory. He tells me that he lives at home in [place] alone, but has support from his family. He does his own Peritoneal Dialysis at home and has no issues with continuing that when he dismisses. PT/OT are going to see him today and give recommendations on if he would benefit from HHC or not. He doesn't use any assistive devices at baseline and denies the need for any upon discharge. Will review therapy notes and see if HHC is warrented by them, if it is, then I will stop back by and talk with Cory about his options. No other questions, needs or concerns. Will continue to follow and assist. Plan home.
--- NOTE | 2016-04-09 17:09 | NUR ---
Significant Event: VSS ON RA. 1 TAB NORCO GIVEN LAST AT 1615 FOR PAIN TO RIGHT GROIN WITH RELIEF NOTED. TOLERABLE AT REST WITH INCREASED PAIN AMBULATING. WALKED IN [place] WITH THERAPY TODAY, TOTAL OF 1 LAP AND DID WELL. PD CATH INTACT AND SECURED, SITE WNL. ANURIA. NO BM TODAY WITH PRN MIRALAX DOSE GIVEN EARLY AFTERNOON. PORT TO R) CHEST SL'D. HEMATOMA/SWELLING TO RIGHT GROIN IMPROVING. Follow up: LABS IN AM. PLAN FOR HOME TOMORROW AFTER INITIATING COUMADIN. PAIN CONTROL.
--- NOTE | 2016-04-10 03:32 | NUR ---
Significant Event: A&Ox3, VSS on room air. 2L O2 applied at HS as patient did not want to wear CPAP. Up ad-twin/independently in room. Patient set up PD independently. Right groin bruised and tender. Old markings noted, bruising starting to settle outside of lines. No significant changes in bruising noted this shift. CSM intact. Patient denies needs, rested well this shift. Pleasant and cooperative with cares. Nurse Draw from right chest port. Follow up: D/C to home today
[2016-04-10 05:57] LABS: ANION GAP 22.4 (10.0-19.0); POTASSIUM 4.4 mMol/L (3.7-5.1)
[2016-04-10 05:58] LABS: CALCIUM 6.2 mg/dL (8.5-10.5); CREATININE 12.6 mg/dL (0.6-1.3)
[2016-04-10 06:13] LABS: BASOPHIL % 0.3 %; EOSINOPHIL # 0.4 K/uL (0.0-0.5); EOSINOPHIL % 4.5 %; HEMATOCRIT 22.1 % (37.0-53.0); IMMATURE GRANULOCYTE # 0.1 K/uL (0.0-0.3); IMMATURE GRANULOCYTE % 0.7 %; LYMPHOCYTE % 11.4 %; MCH 30.8 pg (27.0-34.0); MCHC 33.5 gm/dL (32.0-36.5); MCV 92.1 fl (83.0-98.0); MONOCYTE # 0.7 K/uL (0.0-1.0); MPV 9.4 fl (9.4-12.4); NEUTROPHIL # (ANC) 6.5 K/uL (1.4-9.0); NEUTROPHIL % 75.1 %; NRBC % 0 /100WBC (0-0.00); PLATELET COUNT 175 K/uL (150-450); RDW-CV 14.1 % (11.9-14.6); WBC 8.6 K/uL (4.0-11.0)
[2016-04-10 06:14] LABS: HEMOGLOBIN 7.4 g/dL (12.0-17.0)
[2016-04-10 12:17] LABS: INR - (THERAPEUTIC) 1.1 (0.9-1.1)
--- NOTE | 2016-04-10 13:12 | NUR ---
Social visit with Cory. I let him know that I had talked with therapies and they had recommended that he go home with some HHC and MOW. I let him know that HHC wouldn't come in everyday just to set up his PD for him. He tells me it is just moving it from the box to the floor. I told him that this wasn't something that would be a qualifier for HHC, he voiced understanding this. Encouraged that maybe he have a friend or family help him do this once a week to make it easier on him. He states, "Yeah I will think about it." I also let him know that MOW had been mentioned as well. I called to the [facility], they forwarded me to the [facility] where MOW is based out of. I talked with Sabina, explained Cory's situation, she states that since he is under 60 years old, he has to meet at least 1 out of 3 qualifers, (live in disabled housing, live with someone 60 years or older or be disabled himself) I let her know that he didn't meet any of these so she tells me that they can't offer MOW to him. I explained all of this to Cory, he voiced understanding to it. Denied any other questions, needs or concerns. Once again let him know that having family or friends help him out might be of benefit to him. Will continue to follow and assist.
[2016-04-10 17:20] LABS: HEMATOCRIT 25.1 % (37.0-53.0); HEMOGLOBIN 8.5 g/dL (12.0-17.0)
--- NOTE | 2016-04-10 17:51 | NUR ---
Significant Event: VSS ON RA. HGB 7.4 THIS MORNING WITH 1 UNIT PRBC GIVEN THIS AFTERNOON. HGB AT 1700 8.5. RIGHT CHEST PORT SL'D. AMBULATE IN [place] TODAY WITH WALKER. BM TODAY AFTER PRN DOSE OF MIRALAX GIVEN THIS AM. 1 TAB NORCO GIVEN LAST AROUND 1600 FOR PAIN TO RIGHT GROIN WITH RELIEF NOTED. COUMADIN INITIATED TODAY. Follow up: PLAN FOR HOME TOMORROW. PLACE DC MEDS ON CHART. PD RUNS TONIGHT.
[2016-04-11 03:38] LABS: ANION GAP 21.4 (10.0-19.0); POTASSIUM 4.4 mMol/L (3.7-5.1)
[2016-04-11 03:48] LABS: CALCIUM 6.5 mg/dL (8.5-10.5)
[2016-04-11 03:53] LABS: BASOPHIL % 0.3 %; EOSINOPHIL # 0.4 K/uL (0.0-0.5); EOSINOPHIL % 4.1 %; HEMATOCRIT 24.3 % (37.0-53.0); HEMOGLOBIN 8.3 g/dL (12.0-17.0); IMMATURE GRANULOCYTE # 0.1 K/uL (0.0-0.3); IMMATURE GRANULOCYTE % 0.9 %; LYMPHOCYTE % 10.9 %; MCH 30.7 pg (27.0-34.0); MCHC 34.2 gm/dL (32.0-36.5); MONOCYTE # 0.7 K/uL (0.0-1.0); MONOCYTE % 7.1 %; MPV 9.4 fl (9.4-12.4); NEUTROPHIL # (ANC) 7.2 K/uL (1.4-9.0); NEUTROPHIL % 76.7 %; NRBC % 0 /100WBC (0-0.00); PLATELET COUNT 193 K/uL (150-450); RDW-CV 15.6 % (11.9-14.6); WBC 9.3 K/uL (4.0-11.0)
[2016-04-11 04:01] LABS: INR - (THERAPEUTIC) 1.1 (0.9-1.1); PROTIME 11.2 SECONDS (9.6-11.1)
--- NOTE | 2016-04-11 05:35 | NUR ---
Significant Event: Patient is alert/oriented x3. Vital signs stable. On room air. Refuses to wear CPAP at night, so he has been wearing 2L O2 here while asleep. [place] given x2 for right groin pain. Groin is very ecchymotic but hematoma has decreased in size since admission. Patient states that pain is worse with movement and ambulation. He set up his own peritoneal dialysis last night. Hgb this AM is 8.3. Follow up: Home today?
[2016-04-11] MEDS ORDERED: CPAP (11:05)
[2016-04-11] MEDS ORDERED: NORCO 5-325 TA1 EACH PO (11:09)
--- NOTE | 2016-04-11 16:55 | NUR ---
D:Patient ready to go home. Discharged per wheelchair at 1145. Released to friend to return home. Has personal belongings. Verbeizes understanding of instructions. Patient was called a few minutes after he left the hospital because founds a bag of his medications, they turned out and came and got them.
== END 2016-04-11 11:45 | disposition disaster alternative care site (69) | DRG 919 ==
LOC: GPCU 15:01
PROVIDERS: Family Medicine; Internal Medicine Nephrology; Physician Assistant; ADMIT Internal Medicine
PROC: 30233N1 Transfusion of Nonautologous Red Blood Cells into Peripheral Vein, Percutaneous Approach (ICD-10-PCS; principal; 2016-04-08)
DX: L76.32 Postprocedural hematoma of skin and subcutaneous tissue following other procedure (principal); N18.6 End stage renal disease; I13.2 Hypertensive heart and chronic kidney disease with heart failure and with stage 5 chronic kidney disease, or end stage renal disease; E11.43 Type 2 diabetes mellitus with diabetic autonomic (poly)neuropathy; R18.8 Other ascites; I48.0 Paroxysmal atrial fibrillation; Z99.81 Dependence on supplemental oxygen; I50.32 Chronic diastolic (congestive) heart failure; D62 Acute posthemorrhagic anemia; Z68.41 Body mass index [BMI] 40.0-44.9, adult; G47.33 Obstructive sleep apnea (adult) (pediatric); Z79.01 Long term (current) use of anticoagulants; Z79.4 Long term (current) use of insulin; E03.9 Hypothyroidism, unspecified; E78.5 Hyperlipidemia, unspecified; D63.8 Anemia in other chronic diseases classified elsewhere; Z99.2 Dependence on renal dialysis; I25.10 Atherosclerotic heart disease of native coronary artery without angina pectoris; Z87.891 Personal history of nicotine dependence; E83.39 Other disorders of phosphorus metabolism; I25.2 Old myocardial infarction; Y84.0 Cardiac catheterization as the cause of abnormal reaction of the patient, or of later complication, without mention of misadventure at the time of the procedure; E66.01 Morbid (severe) obesity due to excess calories; R91.1 Solitary pulmonary nodule
CPT/HCPCS: J1170; J1642; J2270; J7050; P9016; Q9967